=== PATIENT | male | born 1940 | race Caucasian/White ===

== ENCOUNTER 2017-03-18 10:30 | Inpatient (IN) | payer MEDICARE, OTHER ==
[~2017-03-18] VITALS: Ht 170.2 cm; Wt 115.2 kg
--- NOTE | ~2017-03-18 | HP ---
PATIENT'S NAME: ELENA ANNE [facility] AGE: 77 Y [address] ROOM: [address] [address] LOCATION: [facility] ADMIT DATE: 03/18/2017 History & Physical DISCHARGE DATE: FAMILY PHYSICIAN: PHYSICIAN, UNKNOWN ATTENDING PHYSICIAN: Obed Ramachandran DATE OF SERVICE: CHIEF COMPLAINT: Acute on chronic hypoxic respiratory failure. HISTORY OF PRESENTING ILLNESS: This 77-year-old white male with a longstanding history of COPD, chronic diastolic heart failure, and diabetes mellitus type 2, was transferred to [facility] from [place] with acute hypoxic respiratory failure. Family indicates that he has not been doing well for a couple of weeks. Apparently, he had been diagnosed with atrial fibrillation and started on anticoagulation on an outpatient basis a couple of weeks ago. It seems that he may have refused hospitalization at that time. Over the last couple of days, he has developed worsening shortness of breath, weakness, and lethargy. He seemed to be confused, and his contacted EMS Services. He was taken to the [facility] where oxygen saturations were found to be in the low 80s. He was started on some supplemental oxygen and seemed to improve. Unfortunately, he was only marginally cooperative with evaluation and management there. Chest x-ray revealed findings consistent with pneumonia versus CHF. He received some IV Lasix, but refused Wadsworth catheter. He has had some diuresis since then, perhaps around 300 mL. On his arrival at [facility], his oxygen saturation was 50% with nasal cannula at 2 L. He was placed on a simple mask, and his saturations improved to the 70s. He was subsequently placed on BiPAP, and his oxygen saturations have improved to the mid 90s. He does report feeling more comfortable, but speech was at times incomprehensible and not coherent. He did recognize his son who appeared at the bedside shortly after his arrival, but was not able to indicate where he had been this morning or his present location. He denied chest pain and denied abdominal pain. No other significant historical elements were gleaned from the chart. PAST MEDICAL HISTORY: ALLERGIES: CODEINE. ILLNESSES: 1. 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 ROOM: [id number] [place], [place] [address] LOCATION: [facility] ADMIT DATE: 03/18/2017 History & Physical DISCHARGE DATE: FAMILY PHYSICIAN: PHYSICIAN, UNKNOWN ATTENDING PHYSICIAN: Obed Ramachandran. 2. Essential hypertension. 3. Hyperlipidemia. 4. Diabetes mellitus, type 2. 5. Morbid obesity. 6. Gouty arthritis. 7. BPH. CURRENT MEDICATIONS: 1. Magnesium 400 mg p.o. daily. 2. Calcium 500 mg p.o. b.i.d. 3. Vitamin D3 at 2000 units p.o. daily. 4. Loratadine 10 mg p.o. q.a.m. 5. Potassium OTC 500 mg p.o. q.a.m. 6. Atenolol 12.5 mg p.o. q.a.m. 7. Gabapentin 400 mg p.o. t.i.d. 8. Lisinopril 10 mg p.o. daily. 9. Protonix 40 mg p.o. b.i.d. 10. Metformin 1000 mg p.o. b.i.d. 11. Simvastatin 20 mg half a tablet p.o. q.a.m. 12. Flomax 0.4 mg p.o. daily. 13. Aricept 10 mg p.o. daily. 14. Allopurinol 300 mg p.o. daily. 15. Aspirin 81 mg p.o. daily. 16. Dover 10/325 one and half tablets p.o. b.i.d. 17. Norvasc 10 mg p.o. daily. 18. Vitamin B12 at 500 mg p.o. q.a.m. 19. Alfuzosin 10 mg p.o. daily. 20. Lasix 40 mg p.o. daily. 21. Testosterone injections monthly. 22. Iron 324 mg p.o. daily. 23. Coumadin daily. FAMILY HISTORY: Significant for cancer in his brother. Mother had diabetes mellitus. SOCIAL HISTORY: He is and lives in [place]. He has a [id number] history of smoking, but has been quit since around 1979. He does continue to chew tobacco daily. No significant history of alcohol use. REVIEW OF SYSTEMS: As per HPI. All other organ systems reviewed and are negative. PHYSICAL EXAMINATION: PATIENT'S NAME: ELENA ANNE [facility] AGE: 77 Y [address] ROOM: [address] [place] [address] LOCATION: [facility] ADMIT DATE: 03/18/2017 History & Physical DISCHARGE DATE: FAMILY PHYSICIAN: PHYSICIAN, UNKNOWN ATTENDING PHYSICIAN: Obed Ramachandran VITAL SIGNS: Temperature 100.2, pulse 103, respirations 18, blood pressure 147/64, and O2 saturation 95% on 60% FiO2. GENERAL: He is frail, ill appearing, lying on the examination table, not oriented. SKIN: Supple, pink, warm, and dry. No obvious rashes, although he does have hyperpigmentation about the bilateral lower extremities. HEENT: Otherwise, normocephalic. Sclerae are nonicteric. Pupils equal and round, slow to react to light. Extraocular movements appear intact. Nasal turbinates normal in appearance. Oropharynx clear. Mucous membranes pink and moist. NECK: Supple, plethoric, and obese. No masses or adenopathy. CHEST: Chest wall is symmetrical. HEART: Regular with frequent extrasystoles. LUNGS: Diminished at the bases. Coarse, with poor air movement bilaterally. There are some scattered end-expiratory wheezes and bibasilar crackles. ABDOMEN: Firm, protuberant, tympanitic. Bowel sounds present, but diminished. No masses or hepatosplenomegaly. GENITOURINARY: Not done. RECTAL: Not done. EXTREMITIES: Display trace pitting edema. No cyanosis. NEUROLOGIC: Mentation is slowed. He does move all extremities equally. He is not oriented and unable to consistently follow commands. LABORATORY AND X-RAY DATA: From [facility], chest x-ray showed poor inflation. There is vascular prominence and fullness at the bases bilaterally consistent with infiltrate versus pulmonary edema. Lactate was 2.2. The proBNP was minimally abnormal at 336. PTT 26.1 and PT 11.4 with an INR of 1.1. Magnesium was 2. Chemistries revealed a BUN and creatinine of 24 and 0.98 respectively, sodium and potassium 140 and 4.6, chloride and CO2 of 98 and 38.1, calcium was 9.0, and glucose 209. AST and ALT 29 and 23 respectively. Bilirubin was 0.2. CBC showed a white blood cell count elevated at 16.6, hemoglobin of 10.5, hematocrit 33.9, and platelets 250. ASSESSMENT AND PLAN: 1. Acute hypoxic and hypercapnic respiratory failure with probable chronic obstructive pulmonary disease exacerbation. Cannot exclude pneumonia. We will admit to inpatient care. He is placed in the intensive care unit. We will continue with aggressive respiratory support. We will utilize noninvasive positive pressure ventilation at least initially. He seemed to respond well to that. We will encourage bronchodilator therapy, antibiotic therapy, and good pulmonary hygiene. We will allow Respiratory Therapy to titrate BiPAP for effect. If he fails to improve or worsens, we will discuss with Pulmonology. 2. Acute encephalopathy, probably multifactorial. We will eliminate PATIENT'S NAME: ELENA ANNE [facility] AGE: 77 Y [address] ROOM: [place] [address] LOCATION: [facility] ADMIT DATE: 03/18/2017 History & Physical DISCHARGE DATE: FAMILY PHYSICIAN: PHYSICIAN, UNKNOWN ATTENDING PHYSICIAN: Obed Ramachandran potentially offending medications. Suspect hypercapnia. We will await upcoming ABGs and follow up on that when the results are known. In the meantime, continue to encourage good pulmonary hygiene and supportive cares. We will get CT scan of the head when it is feasible. 3. Systemic inflammatory response syndrome. We will repeat a lactate and get blood cultures here. Blood cultures were apparently not obtained in [facility]. We will plan to continue with broad-spectrum antibiotic therapy including Levaquin. Suspected pulmonary source. We will monitor clinically and make adjustments if necessary. 4. Abdominal distention. We will obtain abdominal ultrasound as soon as that is feasible. 5. Diabetes mellitus, type 2. We will manage with Accu-Cheks and sliding scale insulin. 6. Chronic diastolic congestive heart failure. We will repeat BNP here. Also, we will get a D-dimer and trend cardiac enzymes. We will monitor for clinical response and consider getting echocardiography. At least at this point he does not appear to be grossly volume overloaded. 7. Benign prostatic hypertrophy. We will bladder scan to ensure that he is not retaining urine. He refused a Wadsworth catheter at least initially, and family declined placement as well. 8. Essential hypertension. Currently, adequately controlled. We will monitor the trend and make adjustments if necessary. 9. Paroxysmal atrial fibrillation. I do not have documentation of atrial fibrillation, but this was apparently identified on an outpatient basis. He is apparently anticoagulated with warfarin, but subtherapeutic. He currently appears to be in normal sinus rhythm. We will monitor, try to obtain the old records, and consider re-initiation of anticoagulation. I decided to wait until his CT scan of the head has been obtained before restarting it now. 10. History of gout, currently asymptomatic and stable. 11. Code status. I spent a good deal of time discussing end-of-life decision making with the patient's family including his eldest son and daughter. They did reflect some disagreement, indicating that the patient did not have an advance directive or living will. They had recently had some discussion about this, and he felt strongly that he did not want any sort of life support. Ultimately, however, they did feel that he would want aggressive and heroic measures if his conditions were felt to be reversible and that he "wanted to live." We discussed various modalities including CPR or chest compressions, electrical shocks, medications, etc., in addition to the need for endotracheal intubation and mechanical ventilation if his condition should worsen. They both expressed that they would want all of these measures since it was felt that his current condition was probably reversible. We will observe full code. 12. Deep venous thrombosis prophylaxis. We will use low-dose Lovenox at PATIENT'S NAME: ELENA ANNE [facility] AGE: 77 Y [address] ROOM: [place] [address] LOCATION: [facility] ADMIT DATE: 03/18/2017 History & Physical DISCHARGE DATE: FAMILY PHYSICIAN: PHYSICIAN, UNKNOWN ATTENDING PHYSICIAN: Obed Ramachandran least initially and discuss full anticoagulation once old records can be obtained. MD AMADOR BLUE/nhi /[id number] D: [id number] T: HISTORY & PHYSICAL
--- NOTE | ~2017-03-18 | DS ---
PATIENT'S NAME: ELENA ANNE [facility] AGE: 77 Y [address] ROOM: [address] [address] LOCATION: [facility] ADMIT DATE: 03/18/2017 Discharge Summary DISCHARGE DATE: 03/20/2017 FAMILY PHYSICIAN: Physician, Unknown ATTENDING PHYSICIAN: Obed Ramachandran DISCHARGED - SIGNED OUT AGAINST MEDICAL ADVICE ADMISSION DIAGNOSES: 1. Irojr-jh-ohtczvz hypoxic respiratory failure. 2. Jewgb-xl-iertjni hypercarbic respiratory failure with encephalopathy. SECONDARY DIAGNOSES: 1. Medical noncompliance. 2. Chronic obstructive pulmonary disease with exacerbation deemed secondary to pneumonia. The patient does endorse 2 to 3 L home oxygen requirement at baseline. 3. Poorly controlled insulin-dependent diabetes mellitus. 4. Heart failure with preserved ejection fraction without acute exacerbation. 5. Paroxysmal atrial fibrillation. 6. Benign prostatic hyperplasia. 7. Essential hypertension. 8. Morbid obesity, BMI of 39. 9. Chronic pain with opioid dependence. 10. Gout. 11. Hyperlipidemia. PRESENTING COMPLAINTS: The patient presented initially to [place] prior to transfer to [facility], where he was noted to be in acute hypoxic respiratory failure. He had initially been brought in by family with increasing confusion and had subsequently decided to contact EMS services. He was also weak and lethargic. Of note, he had been recently diagnosed with atrial fibrillation and was started on anticoagulation as an outpatient, and he did refuse hospitalization at that time as well. HOSPITAL COURSE: The patient was admitted initially to ICU following blood gas obtained showing pCO2 of 74 with pO2 of 74, notably pH had normalized to 7.40; however, this was following BiPAP, which was performed en route from [place]. The patient's home opioids were held on admission given encephalopathy. However, acute encephalopathy had resolved shortly after arrival likely owing to hypercapnia, treated with positive pressure ventilation. The patient was found to be tachycardic with a mildly elevated white count and lactic acid. Blood cultures were obtained here, no growth at the time of discharge, and chest x-ray showed concern for pneumonia, so the patient was started on Levaquin. He was given initially a dose of IV Solu-Medrol, subsequently deescalated to prednisone 40 mg to complete 5-day burst. Diabetes under poor PATIENT'S NAME: ELENA ANNE [facility] AGE: 77 Y [address] ROOM: [address] [place] [id number] LOCATION: [facility] ADMIT DATE: 03/18/2017 Discharge Summary DISCHARGE DATE: 03/20/2017 FAMILY PHYSICIAN: Physician, Unknown ATTENDING PHYSICIAN: Obed Ramachandran control at baseline was further exacerbated by steroid therapy and treated with sliding scale insulin in addition to home insulin therapy while inpatient. On hospital day #3, the patient was noted to be agitated overnight the night prior and this continued into the morning. While he was alert, oriented, and deemed to be able to make his own medical decisions, he was very abrasive to staff and his own family members, and had set that he would be leaving by 2:00 p.m. on the regardless of medical opinions. As he was felt to be able to make his own decisions, he was allowed to sign out against medical advice. Family was with the patient and discouraged this, but felt that this decision was at the end up to him. The patient had been off BiPAP for nearly 24 hours prior to discharge as he had refused and taken the mask off, but also had been improving to the point where he was able to sustain oxygen saturations in the high 80s on 50% FiO2 via high flow nasal cannula. I am told that immediately prior to discharge, the patient was able to ambulate in the halls maintaining saturations greater than 85% on 5 L nasal cannula. He was given prescriptions to complete course of Levaquin for 7 days as well as 5-day burst of prednisone prior to his signing out AMA. Night prior to discharge, given the patient's agitation and ongoing issues with difficulty oxygenating, he was given a dose of Zyprexa, which did calm him briefly; however, this was done cautiously to avoid further deterioration of respiratory status and need for potential intubation. CONDITION: Last set of vital signs prior to discharge: Temperature 98.2, pulse 77, respirations 24, blood pressure 122/59, and saturating 89% on 5 L oxygen nasal cannula. Exam as seen in progress note, pertinent for diminished air entry with prolonged expiratory phase and faint diffuse expiratory wheezes, bibasilar rhonchi. DISCHARGE MEDICATIONS: Per OCT. Pertinent changes include addition of short- term prednisone and Levaquin prescriptions, no changes were made to insulin on discharge. DISCHARGE INSTRUCTIONS: Would recommend that the patient follow up with his PCP within the next week for ongoing evaluation of tenuous situation regarding respiratory status. TIME: I spent 45 minutes on the date of discharge visiting with the patient, family, and coordinating discharge planning given the patient's adamant refusal to remain in the hospital, taken home by his family. MYNOR MORTON MD PATIENT'S NAME: ELENA ANNE [facility] AGE: 77 Y [address] ROOM: [place] [address] LOCATION: [facility] ADMIT DATE: 03/18/2017 Discharge Summary DISCHARGE DATE: 03/20/2017 FAMILY PHYSICIAN: Physician, Unknown ATTENDING PHYSICIAN: Obed Ramachandran/nhi /[id number] d: 03/21/17 0544 t: 03/21/17 0824, DISCHARGE SUMMARY
[~2017-03-18 10:30] MED LIST: AFLUZOSIN PO; ALFUZOSIN HCL E10 MG PO; ALLOPURINOL300 MG PO; ARICEPT10 MG PO; ASPIRIN EC81 MG PO; ATIVAN 1 MG1 MG PO; BAC/NEO/POLY O3.5 GM TOP; CALCIUM500 MG PO; CEFZIL 250250 MG/5 M PO; CENTRUM COMPLE1 EACH PO; CLARITIN10 MG PO; DIABETIC T100 MG/5 M PO; DIABETIC TUSSI PO; DITROPAN5 MG PO; DUONEB INH; GLUCOPHAGE1000 MG PO; GLUCOPHAGE500 MG PO; HYDROCODON-ACE1 EAC4 PO; HYDROCODON-ACE1 EAC6 PO; HYTRIN **IA 9/2 MG PO; IPRAT-ALBUT 0.5-3 ML INH; IPRAT-ALBUT 0.5-3 ML NEB; MAG-OX-400(241400 MG PO; MAGNESIUM OXID400 MG PO; MAGNESIUM PO; NEOSPORIN15 GM TOP; NEURONTIN400 MG PO; NEURONTIN800 MG PO; NITROSTAT0.4 MG PO; NITROSTAT0.4 MG SL; NORVASC10 MG PO; OSCAL + D500 MG PO; PAIN RELIEF325 MG PO; POTASSIUM GLUC500 MG PO; POTASSIUM GLUCONATE PO; PRINIVIL OR ZES10 MG PO; PROAIR RESPICL90 MCG INH; PROTONIX40 MG PO; PROVENTIL HFA6.7 GM INH; PROVENTIL OR V6.7 GM INH; SIMVASTATIN PO; SIMVASTATIN20 MG PO; TAMSULOSIN HCL0.4 MG PO; TENORMIN50 MG PO; TROSPIUM CHLORI20 MG PO; TYLENOL325 MG PO; VITAMIN B-12500 MCG PO; VITAMIN D-32000 UNI1 PO; XALATAN2.5 ML OPHTH; ZITHROMAX250 MG PO; ZOCOR40 MG PO
[2017-03-18 13:18] LABS: BICARBONATE 45.8 mmol/L (18.0-23.0); PO2 74 mmHg (80-90)
[2017-03-18 13:23] LABS: PCO2 74 mmHg (35-45)
[2017-03-18 13:52] LABS: BILIRUBIN URINE NEGATIVE (NEGATIVE); BLOOD URINE NEGATIVE /UL (NEGATIVE); COLOR URINE STRAW (YELLOW); GLUCOSE URINE NEGATIVE (NEGATIVE); KETONE URINE NEGATIVE (NEGATIVE); LEUKOCYTES URINE NEGATIVE /UL (NEGATIVE); NITRITE URINE NEGATIVE (NEGATIVE); PROTEIN URINE NEGATIVE (NEGATIVE); SPEC GRAVITY URINE 1.015 (1.003-1.035); TURBIDITY URINE CLEAR (CLEAR); UROBILINOGEN URINE NORMAL (NORMAL)
[2017-03-18 13:58] LABS: BASOPHIL # 0.1 K/uL (0.0-0.2); BASOPHIL % 0.4 %; EOSINOPHIL % 0.3 %; HEMATOCRIT 30.6 % (37.0-53.0); HEMOGLOBIN 9.9 g/dL (11.0-16.0); IMMATURE GRANULOCYTE # 0.1 K/uL (0.0-0.3); IMMATURE GRANULOCYTE % 0.4 %; LYMPHOCYTE # 0.8 K/uL (0.8-4.0); LYMPHOCYTE % 5.6 %; MCH 30.5 pg (27.0-34.0); MCHC 32.4 gm/dL (32.0-36.5); MCV 94.2 fl (83.0-98.0); MONOCYTE # 0.8 K/uL (0.0-1.0); MONOCYTE % 5.6 %; MPV 9.7 fl (9.4-12.4); NEUTROPHIL # (ANC) 11.9 K/uL (1.4-9.0); NEUTROPHIL % 87.7 %; NRBC % 0 /100WBC (0-0.00); PLATELET COUNT 246 K/uL (150-450); RBC 3.25 M/uL (3.50-5.50); RDW-CV 13.4 % (11.9-14.6); WBC 13.5 K/uL (4.0-11.0)
[2017-03-18 14:13] LABS: ALBUMIN 3.2 gm/dL (3.5-5.0); ANION GAP 7.6 (10.0-19.0); CALCIUM 8.8 mg/dL (8.5-10.5); CREATININE 0.8 mg/dL (0.6-1.3); POTASSIUM 4.6 mMol/L (3.7-5.1); TOTAL BILIRUBIN 0.4 mg/dL (0.0-1.5)
[2017-03-18] MEDS ORDERED: LASIX40 MG PO (15:19)
[2017-03-18] MEDS ORDERED: FEOSOL325 MG PO (15:19)
[2017-03-18] MEDS ORDERED: COUMADIN ** IA3 MG PO (15:20)
--- NOTE | 2017-03-18 16:57 | NUR ---
PT ALERT, ORIENTED TO PERSON AND PLACE AT TIMES. HR 80'S, SA WITH PAC'S, T-MAX 99.5 THIS AFTERNOON, PINK, WARM AND DRY. SBP 120-140'S, TO START HOME BP MEDS THIS EVENING. PULSES 2+ T/O WITH 1-2+ EDEMA DEPENDENTLY. LS SLC AND FINE CRACKLES TO BILAT BASES AND DIM. ON BIPAP 60% MOST OF SHIFT, TO TRY NC WITH MEALS AND REPEAT ABG AT 2100. ADMIT ABG CRITICAL PCO2 OF 74 AND PO2 LOW INTO 70'S. USES URINAL APPROPRIATELY, NO BM, TO EAT DINNER LATER. DENIES N/V, CP, OBVIOUS SOB AND SHELLEY. DENIES ANY N/T, TO RE-START HOME NEURONTIN. SATS MID 90'S ON BIPAP AND UPPER 80'S WHEN SWITCHED TO NC. R) PIV WITH NS AT 50MLS/HR, IV LEVAQUIN STARTED. CT HEAD WITHOUT CONTRAST PENDING. REDNESS TO GROINS AND SACRUM, OTHERWISE SKIN NON-SIGNIFICANT.
[2017-03-18 19:42] LABS: CPK 406 IU/L (35-332)
[2017-03-18 21:56] LABS: BICARBONATE 45.5 mmol/L (18.0-23.0); PCO2 64 mmHg (35-45); PO2 77 mmHg (80-90)
--- NOTE | 2017-03-19 05:38 | NUR ---
Significant Event: PT REMAINS ON BIPAP THIS SHIFT. ATTEMPTS TO WEAN TO 55%, BUT DESATED OVER TIME. RETURNED TO 60% AND SPO2 HAS BEEN INCREASING SINCE; CURRENTLY SATTING 99-100%. TOLERATES 6L NC FOR SHORT PERIODS OF TIME. MAPS >65 ALTHOUGH BOARDERLINE AT TIMES. SLEEPING DEEPLY THIS SHIFT, WAKES FOR THIS RN TO ANSWER QUESTIONS AND PARTICIPATE IN CARES BUT FALLS BACK TO SLEEP EASILY TOLERATING PO INTAKE WELL. TOTAL UOP 500ML FOR THIS RN. REFUSED BATH, REFUSING MOST TURNS FOR THIS RN. ORDER OBTAINED FOR PRN NORCO 5/325. ONE DOSE GIVEN THIS SHIFT. Follow up: CONTINUE WITH BIPAP, WEAN TOLERATED. WALKER CHERRY RN
--- NOTE | 2017-03-19 17:45 | NUR ---
SSignificant Event: Patient refuses Bipap and sats remain between 88-92% on Hiflow at 60%. Patient reported shoulder pain at 15:00, 12 lead EKG was ordered and reviewed by . Patient received norco for pain at 17:30. Follow up: Possible transfer 03/20.
[2017-03-20 05:38] LABS: ANION GAP 9.5 (10.0-19.0); BLOOD UREA NITROGEN 22 mg/dL (6-24); CALCIUM 8.7 mg/dL (8.5-10.5); CHLORIDE 101 mMol/L (96-110); CO2 35 mMol/L (22-32); CREATININE 0.7 mg/dL (0.6-1.3); POTASSIUM 4.5 mMol/L (3.7-5.1); SODIUM 141 mMol/L (135-145)
--- NOTE | 2017-03-20 05:48 | NUR ---
Significant Event: Patient a/o x3. Patient extremely agitated at start of shift, wanted to leave AMA. IM zyprexa given, patient states he will stay until 1400 tomorrow 03/20. Patient moves all extremeties x4 with generalized weakness. Pupils 3mm, brisk, equal. SR with HRs 60-90s. Afibrile. Bowel sounds hypoactive, no BM. Patient voids per urinal, clear, yellow. Patient refused orals, bath, most turns. Patient did tolerate Bipap most of the night. Lungs sounds slightly course, patient sats 70s-80s without HIflow or Bipap. Follow up:Wean O2.
== END 2017-03-20 14:00 | disposition left against medical advice (07) | DRG 190 ==
LOC: GICU 11:37
PROVIDERS: Internal Medicine; ADMIT Family Medicine
PROC: 5A09357 Assistance with Respiratory Ventilation, Less than 24 Consecutive Hours, Continuous Positive Airway Pressure (ICD-10-PCS; principal; 2017-03-18)
DX: J44.0 Chronic obstructive pulmonary disease with (acute) lower respiratory infection (principal); J18.9 Pneumonia, unspecified organism; J96.21 Acute and chronic respiratory failure with hypoxia; G93.40 Encephalopathy, unspecified; I11.0 Hypertensive heart disease with heart failure; I50.32 Chronic diastolic (congestive) heart failure; I48.0 Paroxysmal atrial fibrillation; E11.65 Type 2 diabetes mellitus with hyperglycemia; J96.22 Acute and chronic respiratory failure with hypercapnia; J44.1 Chronic obstructive pulmonary disease with (acute) exacerbation; Z91.19 Patient's noncompliance with other medical treatment and regimen; E78.5 Hyperlipidemia, unspecified; M10.9 Gout, unspecified; E66.01 Morbid (severe) obesity due to excess calories; Z68.39 Body mass index [BMI] 39.0-39.9, adult; G89.29 Other chronic pain; Z79.891 Long term (current) use of opiate analgesic; N40.0 Benign prostatic hyperplasia without lower urinary tract symptoms; Z79.01 Long term (current) use of anticoagulants; Z79.4 Long term (current) use of insulin; F17.220 Nicotine dependence, chewing tobacco, uncomplicated
CPT/HCPCS: A9270; C9113; J1650; J1956; J2001; J2930; J7030; J7512